=== PATIENT | female | born 1980 | race Caucasian/White ===

== ENCOUNTER 2018-05-16 23:27 | Inpatient (IN) | payer BC ==
[2018-05-17 01:59] LABS: ABS Basophils 0 10^3/ul (0-0.2); ABS Eosinophils 0.3 10^3/ul (0-0.6); ABS Lymphocytes 1.9 10^3/ul (1.0-4.8); ABS Monocytes 0.8 10^3/ul (0-0.8); ABS Neutrophils 5.9 10^3/ul (1.5-7.7); ABS Nucleated RBC 0 10^3/ul; Eosinophil % 3.3 % (0-6); Hematocrit 34 % (35-47); Hemoglobin 11.6 g/dl (12.0-16.0); Lymphocyte % 21.2 % (25-47); Mean Corpuscular HGB Conc 35 g/dl (31-36); Mean Corpuscular Hemoglobin 29 pg (27-31); Mean Corpuscular Volume 83 fL (80-97); Mean Platelet Volume 8.3 um3 (7.4-10.4); Nucleated Red Blood Cells % 0; Platelet Count 161 10^3/ul (150-450); Red Blood Count 4.04 10^6/ul (4.00-5.40); Red Cell Distribution Width 14 % (10.5-15); White Blood Count 8.9 10^3/ul (3.5-10.8)
[2018-05-17] MEDS ORDERED: Oxytocin in LR* 20 UNITS/1,000 ML BAG IVPB SCH ×2 (05:00→18:00)
--- NOTE | 2018-05-17 05:04 | HP ---
General Information - Reason for Visit Patient is a 38 y/o lady with an IUP at 38 6/7 weeks presented with complaints of contractions to r/o labor, no leakage of fluid, no bleeding. She was noted to have FHT's in low 100's to 110 and on evaluation diagnosed with oligohydramnios with MELVIN 2.2cm. 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 and congenital laryngomalacia, See Records Pertinent Past Medical History: See Records Past Medical History Comment: Asthma Eczema Seasonal allergies Pertinent Past Surgical History: See Records Past Surgical History Comment: Laparoscopic appendectomy 2007 Pertinent Family History: See Records - Antepartal Records Antepartal Records: Reviewed, Complicated by: - Advanced maternal age Review of Systems Constitutional: Comfortable CV Complaint: No Respiratory: Shortness of Breath: No Gastrointestinal: No Nausea/Vomiting, Normal Bowel Movement Genitourinary: No Dysuria, No Bleeding, No Leaking Fluid Musculoskeletal: No Complaint, No Epigastric Pain Neurological: No Headache, No Visual Changes Movement: Normal Exam Allergies/Adverse Reactions: Allergies MS Cefaclor [From Ceclor] Allergy (Intermediate, Verified 05/17/18 02:12) Hives Temp 97.4 BP 126/85 P 61 RR 18 Pox 99% RA Lab Values - Entire Visit: Laboratory Tests 05/17/18 05/17/18 01:30 01:30 WBC 8.9 RBC 4.04 Hgb 11.6 L Hct 34 L MCV 83 MCH 29 MCHC 35 RDW 14 Plt Count 161 MPV 8.3 Neut % (Auto) 65.9 Lymph % (Auto) 21.2 L Love % (Auto) 9.2 H Eos % (Auto) 3.3 Baso % (Auto) 0.4 Absolute Neuts (auto) 5.9 Absolute Lymphs (auto) 1.9 Absolute Monos (auto) 0.8 Absolute Eos (auto) 0.3 Absolute Basos (auto) 0 Absolute Nucleated RBC 0 Nucleated RBC % 0 Blood Type O Positive Antibody Screen Negative - Measurements Height: 5 ft 4 in Weight: 160 lb Weight in lbs: [phone] Body Mass Index (BMI): 27.4 Pre- Weight: 153 lb Weight Gained This : 7 lbs and 0 ozs - Exam Breast: Breast Exam Deferred CVA: No CVA Tenderness Extremities: No Edema Heart: Normal Rhythm/Heart Sounds HEENT: No Significant Findings Lungs: Clear Bilaterally Rectal: Rectal Exam Deferred Reflexes: DTR 2+ Thyroid: No Thyromegaly - Abdominal Exam Abdomen Exam: Non-Tender, Fundal Height Consistent with Dates - Ultrasound/Biophysical Profile Ultrasound Status: Bedside Exam Biophysical Profile: Normal Reactive NST, Abnormal Amniotic Fluid - MELVIN 2.2cm Targeted Exam Findings See L&D Outpatient Visit Provider Note for Findings: N/A Cervical Exam: 3cm Effacement: 70% Station: -2 Presenting Part: Vertex Membrane Status: Intact EFM Findings - External Monitor Findings Baseline Heart Rate: 110 External Monitor Findings: Accelerations Present Contractions: Irregular, < 45 Seconds Assessment/Plan - Assessment at 38 6/7 weeks with oligohydramnios. low heart baseline but reactive and no decelerations. - Plan Plan: Induction, IV Hydration, Admit - Anticipate Vaginal Delivery - Date/Time of Admission Date of Admission: 05/17/18 Time of Admission: 05:00
[2018-05-17] MEDS ORDERED: OBEPIDURAL* 250 ML EPIDURAL ONE (12:56)
[2018-05-17] MEDS ORDERED: fentaNYL* 50 MCG/ML 2 ML VIAL (100 MCG VIAL) ONE (12:57)
[2018-05-17] MEDS ORDERED: Phenylephrine IV* 40 MCG/ML 10 ML SYRINGE IV PUSH PRN ×2 (13:26)
[2018-05-17] MEDS ORDERED: Sodium Citrate/Citric Acid* 15 ML UDC PO PRN (13:26)
[2018-05-17] MEDS ORDERED: Famotidine TAB* 20 MG PO PRN (13:26)
[2018-05-17] MEDS ORDERED: Calcium Carbonate CHEW TAB* 500 MG (TUMS) ONE (13:28)
[2018-05-17] MEDS ORDERED: Calcium Carbonate CHEW TAB* 500 MG (TUMS) PO ONE (13:29)
[2018-05-17] MEDS ORDERED: OBEPIDURAL* 250 ML EPIDURAL SCH (14:00)
[2018-05-17] MEDS ORDERED: Witch Hazel PAD* JAR TOPICAL PRN (17:02)
[2018-05-17] MEDS ORDERED: Dibucaine 1% 28.35 GM TUBE PR PRN (17:02)
[2018-05-17] MEDS ORDERED: Glycerin ADULT SUPP PR PRN (17:02)
[2018-05-17] MEDS ORDERED: Simethicone TAB* 80 MG TAB.CHEW PO SCH (17:30)
[2018-05-17] MEDS: Ibuprofen TAB* 600 MG PO PRN (17:49)
[2018-05-17] MEDS: Docusate CAP* 100 MG PO SCH (22:08)
[2018-05-18] MEDS: Ibuprofen TAB* 600 MG PO PRN ×4 (00:08→20:47)
[2018-05-18] MEDS: Acetaminophen TAB* 325 MG PO PRN ×2 (04:24→11:46)
[2018-05-18 08:27] LABS: ABS Basophils 0.1 10^3/ul (0-0.2); ABS Eosinophils 0.2 10^3/ul (0-0.6); ABS Lymphocytes 1.4 10^3/ul (1.0-4.8); ABS Monocytes 0.7 10^3/ul (0-0.8); ABS Neutrophils 7.2 10^3/ul (1.5-7.7); ABS Nucleated RBC 0 10^3/ul; Eosinophil % 2.3 % (0-6); Hematocrit 34 % (35-47); Hemoglobin 11.6 g/dl (12.0-16.0); Lymphocyte % 14.5 % (25-47); Mean Corpuscular HGB Conc 34 g/dl (31-36); Mean Corpuscular Hemoglobin 29 pg (27-31); Mean Corpuscular Volume 84 fL (80-97); Nucleated Red Blood Cells % 0; Platelet Count 175 10^3/ul (150-450); Red Blood Count 4.06 10^6/ul (4.00-5.40); Red Cell Distribution Width 13 % (10.5-15); White Blood Count 9.6 10^3/ul (3.5-10.8)
[2018-05-18] MEDS ORDERED: Ferrous Gluconate TAB* 324 MG TAB PO SCH (09:00)
[2018-05-18] MEDS: Docusate CAP* 100 MG PO SCH ×3 (09:19→20:48)
[2018-05-19] MEDS: Ibuprofen TAB* 600 MG PO PRN (06:24)
[2018-05-19 08:50] VITALS: BP 118/82
[2018-05-19] MEDS: Docusate CAP* 100 MG PO SCH (09:21)
== END 2018-05-19 10:30 | disposition home or self-care (01) | DRG 560 ==
LOC: MCHOBOUT 23:27 → MCHOB 05-17 04:49
PROVIDERS: ADMIT Obstetrics & Gynecology; ATTEND Obstetrics & Gynecology
PROC: 10907ZC Drainage of Amniotic Fluid, Therapeutic from Products of Conception, Via Natural or Artificial Opening (ICD-10-PCS; principal; 2018-05-17)
PROC: 10E0XZZ Delivery of Products of Conception, External Approach (ICD-10-PCS; 2018-05-17)
PROC: 4A1HX4Z Monitoring of Products of Conception, Cardiac Electrical Activity, External Approach (ICD-10-PCS; 2018-05-17)
DX: O41.03X0 Oligohydramnios, third trimester, not applicable or unspecified (principal); O76 Abnormality in fetal heart rate and rhythm complicating labor and delivery; Z3A.38 38 weeks gestation of pregnancy; Z88.1 Allergy status to other antibiotic agents; Z37.0 Single live birth; O71.89 Other specified obstetric trauma
CPT/HCPCS: 36415; 76815; 85025; 86850; 86900; 86901; A9270-GY; J3010